=== PATIENT | female | born 1990 | race Caucasian/White ===

== ENCOUNTER → 2017-07-14 | Outpatient (CLI) | payer OTHER ==
--- NOTE | 2017-07-14 17:11 | Diagnostic Imaging Report ---
Transabdominal and transvaginal pelvic ultrasound. INDICATION: Pelvic pain. FINDINGS: The uterus is retroverted with measurements of 6 x 3.9 x 4 cm. The endometrial stripe is 0.7 cm in thickness. No myometrial mass is seen. The left ovary is 2.9 x 2.3 x 2.4 cm. Multiple follicles are seen. The right ovary is 2.8 x 3.2 x 1.7 cm. Multiple follicles are seen. Arterial and venous waveforms are demonstrated over both ovaries. No solid mass or significant fluid collection is seen. The urinary bladder appears unremarkable. IMPRESSION: Unremarkable exam. Dictated by: Dictated on workstation # [id number]
== END ==
LOC: RAD 14:04
PROVIDERS: ATTEND Obstetrics & Gynecology
DX: R10.2 Pelvic and perineal pain (principal); N94.0 Mittelschmerz
CPT/HCPCS: 76830; 76856

== ENCOUNTER 2017-10-16 08:10 | Emergency (ER) | payer BC, OTHER ==
[~2017-10-16] VITALS: Ht 160 cm; Wt 38.6 kg
[2017-10-16] MEDS ORDERED: NS IV 1000 ML 1,000 ML IV STA (08:19)
[2017-10-16 08:30] LABS: BILIRUBIN,URINE NEGATIVE (NEGATIVE); CLARITY,URINE CLEAR; COLOR,URINE YELLOW; GLUCOSE, URINE (UA) NEGATIVE (NEGATIVE); KETONES,URINE NEGATIVE (NEGATIVE); LEUKOCYTE ESTERASE ,URINE NEGATIVE (NEGATIVE); NITRITE,URINE NEGATIVE (NEGATIVE); PH,URINE 6 (5-9); PROTEIN,URINE NEGATIVE (NEGATIVE); UROBILINOGEN,URINE NORMAL (NORMAL)
[2017-10-16] MEDS ORDERED: ONDANSETRON 4 MG/2 ML (SDV) Z0FRAN IVP ONE (08:30)
[2017-10-16 08:51] LABS: BACTERIA,URINE NEGATIVE /HPF; WBC,URINE RARE /HPF
[2017-10-16 08:53] LABS: BASOPHILS % (AUTO) 1 % (0-10); EOSINOPHILS # (AUTO) 0.1 10^3/uL (0.0-0.3); EOSINOPHILS % (AUTO) 2 % (0-10); HEMATOCRIT 42 % (35-52); HEMOGLOBIN 14.5 G/DL (11.5-16.0); LYMPHOCYTES # (AUTO) 2.9 X 10^3 (1.0-4.0); LYMPHOCYTES % (AUTO) 34 % (12-44); MEAN CORPUSCULAR HEMOGLOBIN 30 PG (25-34); MEAN CORPUSCULAR HGB CONC 35 G/DL (32-36); MEAN CORPUSCULAR VOLUME 87 FL (80-99); MEAN PLATELET VOLUME 9.7 FL (7.4-10.4); MONOCYTES # (AUTO) 0.7 X 10^3 (0.0-1.0); MONOCYTES % (AUTO) 8 % (0-12); NEUTROPHILS # (AUTO) 4.8 X 10^3 (1.8-7.8); NEUTROPHILS % (AUTO) 56 % (42-75); PLATELET COUNT 291 10^3/uL (130-400); RED BLOOD COUNT 4.82 10^6/uL (4.35-5.85); RED CELL DISTRIBUTION WIDTH 12.2 % (10.0-14.5); WHITE BLOOD COUNT 8.6 10^3/uL (4.3-11.0)
--- NOTE | 2017-10-16 09:08 | ED Abdominal Pain ---
General Chief Complaint: Abdominal/GI Problems Stated Complaint: R SIDE PAIN Nursing Triage Note: C/O R LOWER ABD PAIN WITH N.V.D Sepsis Screen: No Definite Risk Source of Information: Patient Exam Limitations: No Limitations History of Present Illness Time Seen By Provider: 08:25 Initial Comments Here with report of right-sided abdominal pain associated with nausea, vomiting or diarrhea. Denies blood in her vomit or stool. Denies dysuria. Started with nausea and not feeling well yesterday and progressed to the vomiting and diarrhea this morning. Timing/Duration: 12 Hours Severity/Quality: Moderate Location: RLQ Radiation: No Radiation Modifying Factors: Worsens With Eating, Worsens With Resting Associated Symptoms: No Back Pain, No Chest Pain, No Fever/Chills, Nausea/ Vomiting, No Shortness of Air, No Weakness Allergies and Home Medications Allergies Coded Allergies: No Known Drug Allergies (Unverified , 12/21/10) Review of Systems Constitutional: see HPI, No chills, No fever EENTM: No Symptoms Reported Respiratory: No Symptoms Reported Cardiovascular: No Symptoms Reported Gastrointestinal: See HPI, Abdominal Pain, Diarrhea, Nausea, Vomiting Genitourinary: No Symptoms Reported Musculoskeletal: no symptoms reported Skin: no symptoms reported Psychiatric/Neurological: Denies Numbness, Denies Weakness Endocrine: No Symptoms Reported All Other Systems Reviewed Negative Unless Noted: Yes Past Njfrhaq-Zrhosf-Iydscl Hx Patient Social History Alcohol Use: Denies Use Recreational Drug Use: No Smoking Status: Never a Smoker Recent Foreign Travel: No Contact w/Someone Who Travel: No Recent Infectious Disease Expo: No Surgeries History of Surgeries: Yes Surgeries: Tonsillectomy Respiratory History of Respiratory Disorde: No Cardiovascular History of Cardiac Disorders: No Neurological History of Neurological Disord: No Reproductive System Last Menstrual Period: Sep 29, 2017 Genitourinary History of Genitourinary Disor: No Gastrointestinal History of Gastrointestinal Di: No Musculoskeletal History of Musculoskeletal Dis: No Endocrine History of Endocrine Disorders: No HEENT History of HEENT Disorders: No Cancer History of Cancer: No Psychosocial History of Psychiatric Problem: No Integumentary History of Skin or Integumenta: No Reviewed Nursing Assessment Reviewed/Agree w Nursing PMH: Yes Family Medical History Significant Family History: No Pertinent Family Hx Physical Exam Vital Signs VS - Last 72 Hours, by Label 10/16/17 08:14 Temp 98.5 Pulse 85 Resp 18 B/P (MAP) 144/84 (104) Pulse Ox 96 O2 Delivery Room Air Capillary Refill : Less Than 3 Seconds General Appearance: WD/WN, no apparent distress HEENT: PERRL/EOMI, pharynx normal Neck: full range of motion, supple Respiratory: lungs clear, normal breath sounds Cardiovascular: regular rate, rhythm, no murmur Peripheral Pulses: 2+ Dorsalis Pedis (R), 2+ Left Dors-Pedis (L), 2+ Radial Pulses (R), 2+ Radial Pulses (L) Gastrointestinal: soft, tenderness (right-sided abdominal pain at the upper/ lower junction) Extremities: non-tender, normal inspection Back: normal inspection, no CVA tenderness, no vertebral tenderness Neurologic/Psychiatric: alert, oriented x 3 Skin: normal color, warm/dry Progress/Results/Core Measures Results/Orders Lab Results Laboratory Tests Test 10/16/17 08:25 10/16/17 08:42 Range/Units Urine Color YELLOW Urine Clarity CLEAR Urine pH 6 5-9 Urine Specific Howe 1.020 1.016-1.022 Urine Protein NEGATIVE NEGATIVE Urine Glucose (UA) NEGATIVE NEGATIVE Urine Ketones NEGATIVE NEGATIVE Urine Nitrite NEGATIVE NEGATIVE Urine Bilirubin NEGATIVE NEGATIVE Urine Urobilinogen NORMAL NORMAL MG/DL Urine Leukocyte Esterase NEGATIVE NEGATIVE Urine RBC (Auto) NEGATIVE NEGATIVE Urine RBC NONE /HPF Urine WBC RARE /HPF Urine Squamous Epithelial Cells 2-5 /HPF Urine Crystals NONE /LPF Urine Bacteria NEGATIVE /HPF Urine Casts NONE /LPF Urine Mucus NEGATIVE /LPF Urine Culture Indicated NO White Blood Count 8.6 4.3-11.0 10^3/uL Red Blood Count 4.82 4.35-5.85 10^6/uL Hemoglobin 14.5 11.5-16.0 G/DL Hematocrit 42 35-52 % Mean Corpuscular Volume 87 80-99 FL Mean Corpuscular Hemoglobin 30 25-34 PG Mean Corpuscular Hemoglobin Concent 35 32-36 G/DL Red Cell Distribution Width 12.2 10.0-14.5 % Platelet Count 291 130-400 10^3/uL Mean Platelet Volume 9.7 7.4-10.4 FL Neutrophils (%) (Auto) 56 42-75 % Lymphocytes (%) (Auto) 34 12-44 % Monocytes (%) (Auto) 8 0-12 % Eosinophils (%) (Auto) 2 0-10 % Basophils (%) (Auto) 1 0-10 % Neutrophils # (Auto) 4.8 1.8-7.8 X 10^3 Lymphocytes # (Auto) 2.9 1.0-4.0 X 10^3 Monocytes # (Auto) 0.7 0.0-1.0 X 10^3 Eosinophils # (Auto) 0.1 0.0-0.3 10^3/uL Basophils # (Auto) 0.0 0.0-0.1 10^3/uL Sodium Level 139 135-145 MMOL/L Potassium Level 4.2 3.6-5.0 MMOL/L Chloride Level 105 98-107 MMOL/L Carbon Dioxide Level 23 21-32 MMOL/L Anion Gap 11 5-14 MMOL/L Blood Urea Nitrogen 12 7-18 MG/DL Creatinine 0.86 0.60-1.30 MG/DL Estimat Glomerular Filtration Rate > 60 BUN/Creatinine Ratio 14 Glucose Level 104 70-105 MG/DL Calcium Level 9.5 8.5-10.1 MG/DL Total Bilirubin 0.3 0.1-1.0 MG/DL Aspartate Amino Transf (AST/SGOT) 18 5-34 U/L Alanine Aminotransferase (ALT/SGPT) 21 0-55 U/L Alkaline Phosphatase 56 40-136 U/L C-Reactive Protein High Sensitivity 0.27 0.00-0.50 MG/DL Total Protein 7.4 6.4-8.2 GM/DL Albumin 4.2 3.2-4.5 GM/DL My Orders Orders - VIET DAVIS MD Urine Bedside (10/16/17 08:19) Cbc With Automated Diff (10/16/17 08:19) Comprehensive Metabolic Panel (10/16/17 08:19) Hs C Reactive Protein (10/16/17 08:19) Ua Culture If Indicated (10/16/17 08:19) Ondansetron Injection (Zofran Injectio (10/16/17 08:30) Ns Iv 1000 Ml (Sodium Chloride 0.9%) (10/16/17 08:19) Saline Lock/Iv-Start (10/16/17 08:19) Ct Abd/Pelv W (Appendicitis) (10/16/17 08:57) Iohexol Injection (Omnipaque 350 Mg/Ml 1 (10/16/17 09:45) Medications Given in ED Current Medications Medications Dose Ordered Sig/Ada Route Start Time Stop Time Status Last Admin Dose Admin Iohexol 100 ml ONCE ONCE IV 10/16/17 09:45 10/16/17 09:46 DC 10/16/17 09:43 100 ML Ondansetron HCl 4 mg ONCE ONCE IVP 10/16/17 08:30 10/16/17 08:31 DC 10/16/17 08:40 4 MG Vital Signs/I&O Vital Sign - Last 12Hours 10/16/17 08:14 Temp 98.5 Pulse 85 Resp 18 B/P (MAP) 144/84 (104) Pulse Ox 96 O2 Delivery Room Air Blood Pressure Mean: 104 Point of Care Testing Urine -Bedside: Negative Progress Note : Progress Note Seen and evaluated. IV, labs, normal saline 1 L bolus, UA and UCG ordered. Zofran 4 mg IV ordered. Patient declined pain medicine. 0905: CT abdomen pelvis appendicitis protocol ordered. Monitor patient. 1020: CT negative. No acute findings. Discharged home with return precautions. Patient verbalize understanding instructions and agreement with plan. Diagnostic Imaging Diagonstic Imaging: CT Plain Films/CT/US/NM/MRI: abdomen, pelvis Comments [facility]IA [facility]. [place], [place] NAME: LAUREN [facility]DO [facility] REC#: [id number] PT STATUS: REG ER : 1990 PHYSICIAN: VIET DAVIS MD ADMIT DATE: 10/16/17/ER Draft Date of Exam:10/16/17 CT ABD/PELV W (APPENDICITIS) PROCEDURE: CT abdomen and pelvis with contrast, rule out appendicitis. TECHNIQUE: Multiple contiguous axial images were obtained through the abdomen and pelvis after the administration of intravenous contrast. INDICATION: Right lower quadrant pain. FINDINGS: The air-containing appendix is well-visualized, non-thickened, nondilated and normal. The unobstructed kidneys appeared normal. The liver, gallbladder, bile ducts, spleen, adrenals and pancreas are normal. There is no bowel obstruction. There is no diverticulitis. The uterus, adnexa and urinary bladder had an unremarkable appearance. No focal inflammatory process. No ascites, abscess, hematoma or other fluid collection. IMPRESSION: Normal appendix, unobstructed and nonacute urinary tracts. No inflammatory process or acute findings. No adnexal abnormality. Dictated on workstation # [id number] Dict: 10/16/17 0945 Trans: 10/16/17 1012 [facility] [id number] Interpreted by: ELIANE JOE Electronically signed by: Departure Impression Impression: Primary Impression: Right sided abdominal pain Disposition: HOME, SELF-CARE Condition: Stable Departure-Patient Inst. Decision time for Depature: 10:27 Referrals: NO,LOCAL PHYSICIAN (PCP) Primary Care Physician Patient Instructions: Acute Abdomen (Belly Pain), Adult (DC), Diarrhea in Adolescents and Adults, Nausea and Vomiting, Adult (DC) Add. Discharge Instructions: All discharge instructions reviewed with patient and/or family. Voiced understanding. Clear liquid diet for 24 hours and then advance as tolerated. Follow-up with your Dr. in 2-3 days for recheck. Return for worsening, fever, vomiting, weakness, breathing problems or other concerns as needed. You may take Tylenol or ibuprofen per package directions for fever or pain. Take other medications as directed. Scripts Promethazine HCl (Promethazine Tablet) 25 Mg Tablet 25 MG PO Q8H Y for NAUSEA/VOMITING, #10 TAB 0 Refills Prov: VIET DAVIS MD 10/16/17 VIET DAVIS MD Oct 16, 2017 09:08
[2017-10-16 09:09] LABS: ALANINE AMINOTRANSFERASE 21 U/L (0-55); ALBUMIN 4.2 GM/DL (3.2-4.5); ALKALINE PHOSPHATASE 56 U/L (40-136); BILIRUBIN,TOTAL 0.3 MG/DL (0.1-1.0); BUN/CREATININE RATIO 14; CALCIUM 9.5 MG/DL (8.5-10.1); CARBON DIOXIDE 23 MMOL/L (21-32); CHLORIDE 105 MMOL/L (98-107); CREATININE SERUM 0.86 MG/DL (0.60-1.30); GFR ESTIMATED > 60; GLUCOSE 104 MG/DL (70-105); POTASSIUM 4.2 MMOL/L (3.6-5.0); SODIUM 139 MMOL/L (135-145); TOTAL PROTEIN 7.4 GM/DL (6.4-8.2)
[2017-10-16] MEDS ORDERED: IOHEXOL 350 MG/ML 100 ML (OMNIPAQUE 350) VIAL IV ONE (09:45)
--- NOTE | 2017-10-16 10:13 | Diagnostic Imaging Report ---
PROCEDURE: CT abdomen and pelvis with contrast, rule out appendicitis. TECHNIQUE: Multiple contiguous axial images were obtained through the abdomen and pelvis after the administration of intravenous contrast. INDICATION: Right lower quadrant pain. FINDINGS: The air-containing appendix is well-visualized, non-thickened, nondilated and normal. The unobstructed kidneys appeared normal. The liver, gallbladder, bile ducts, spleen, adrenals and pancreas are normal. There is no bowel obstruction. There is no diverticulitis. The uterus, adnexa and urinary bladder had an unremarkable appearance. No focal inflammatory process. No ascites, abscess, hematoma or other fluid collection. IMPRESSION: Normal appendix, unobstructed and nonacute urinary tracts. No inflammatory process or acute findings. No adnexal abnormality. Dictated by: Dictated on workstation # [id number]
[2017-10-16] MEDS ORDERED: PROM25TA14 PO (10:28)
[2017-10-16 10:43] VITALS: BP 130/87
--- OUTSIDE RECORDS SUMMARY | 2017-10-16 20:10 | XMS REPORT ---
Author RONAL King [facility] eClinicalWorks Address Unknown Phone Unavailable Care Team Providers Care Hr Intern Name Role Phone RONAL STEPHENSON CP Unavailable Allergies, Adverse Reactions, Alerts Substance Reaction Event Type N.K.D.A. Info Not Available Non Drug Allergy Problems Problem Type Condition Code Onset Dates Condition Status Problem Irregular menstrual cycle 626.4 Active Problem Cough 786.2 Active Problem Dietary surveillance and counseling V65.3 Active Problem Diabetes E11.9 Active Problem Obesity (BMI 35.0-39.9 without comorbidity) E66.01 Active Problem Metabolic syndrome E88.81 Active Problem Obesity (BMI 30.0-34.9) 278.00 Active Problem Acute sinusitis, unspecified 461.9 Active Problem Hypercholesterolemia E78.0 Active Problem Prediabetes 790.29 Active Assessment Metabolic syndrome E88.81 Active Problem 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 [address]-20 20 MG Orally Once a day April 27, 2015 1 tablet in the evening MetFORMIN HCl ER [facility] [address]-35 500 MG Orally 2 times a day Aug 30, 2015 1 tablet with evening meal Procedures Procedure Coding System Code Date Office Visit, Est Pt., Level 4 CPT-4 65567 Sep 27, 2015 Vital Signs Date/Time: Sep 27, 2015 Temperature 97.8 F Weight 235.9 lbs Height 64 in BMI 40.49 Index Blood Pressure Diastolic 80 mmHg Blood Pressure Systolic 122 mmHg Cardiac Monitoring Heart Rate 84 bpm Results No Known Results Summary Purpose eClinicalWorks Submission
--- OUTSIDE RECORDS SUMMARY | 2017-10-16 20:10 | XMS REPORT ---
Author Author MAYKEL LOVELACE Organization eClinicalWorks Address Unknown Phone Unavailable Care Team Providers Care Manager Of Information Name Role Phone MAYKEL LOVELACE CP Unavailable Allergies, Adverse Reactions, Alerts Substance Reaction Event Type N.K.D.A. 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 Active Assessment Allergic rhinitis 477.9 Active Problem Obesity (BMI 30.0-34.9) 278.00 Active Problem Acute sinusitis, unspecified 461.9 Active Problem Prediabetes 790.29 Active Problem Irregular menstrual cycle 626.4 Active Problem Other and unspecified hyperlipidemia 272.4 Active Problem Cough 786.2 Active Problem Dietary surveillance and counseling V65.3 Active Medications Medication Code System Code Instructions Start Date End Date [place] D[place] [address]-87 10 MG Orally Once a day Jun 27, 2015 Oct 25, 2015 1 tablet as needed Zocor NDC [address]-37 20 MG Orally Once a day April 27, 2015 1 tablet in the evening metformin NDC 0 500 mg orally Once a day February 17, 2014 Jul 25, 2015 1 tablet by Oral route 1 time per day Procedures Procedure Coding System Code Date Office Visit, Est Pt., Level 3 CPT-4 55209 Jun 27, 2015 Vital Signs Date/Time: Jun 27, 2015 Temperature 98.4 F Weight 229 lbs Height 64 in BMI 39.30 Index Blood Pressure Diastolic 64 mmHg Blood Pressure Systolic 118 mmHg Cardiac Monitoring Heart Rate 100 bpm Results No Known Results Summary Purpose eClinicalWorks Submission
--- OUTSIDE RECORDS SUMMARY | 2017-10-16 20:10 | XMS REPORT ---
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
--- OUTSIDE RECORDS SUMMARY | 2017-10-16 20:11 | XMS REPORT ---
Author RONAL King [facility] eClinicalWorks Address Unknown Phone Unavailable Care Team Providers Care Marketing Production Specialist Name Role Phone RONAL STEPHENSON CP Unavailable Allergies, Adverse Reactions, Alerts Substance Reaction Event Type N.K.D.A. Info Not Available Non Drug Allergy Problems Problem Type Condition Code Onset Dates Condition Status Problem Other and unspecified hyperlipidemia 272.4 Active Problem Dietary surveillance and counseling V65.3 Active Problem Irregular menstrual cycle 626.4 Active Problem Obesity (BMI 35.0-39.9 without comorbidity) E66.01 Active Problem Hypercholesterolemia E78.0 Active Problem Diabetes E11.9 Active Problem Acute sinusitis, unspecified 461.9 Active Problem Cough 786.2 Active Problem Prediabetes 790.29 Active Problem Obesity (BMI 30.0-34.9) 278.00 Active Assessment Hypercholesterolemia E78.0 Active Assessment Obesity (BMI 35.0-39.9 without comorbidity) E66.01 Active Assessment Diabetes E11.9 Active Problem 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 Active Medications Medication Code System Code Instructions Start Date End Date Status Dosage MetFORMIN HCl ER [facility] [address]-37 500 MG Orally 2 times a day Aug 30, 2015 1 tablet with evening meal Zocor [facility] [address]-59 20 MG Orally Once a day April 27, 2015 1 tablet in the evening Procedures Procedure Coding System Code Date Office Visit, Est Pt., Level 3 CPT-4 10938 Aug 30, 2015 GLYCATED HEMOGLOBIN TEST CPT-4 86653 Aug 30, 2015 Vital Signs Date/Time: Aug 30, 2015 Temperature 97.1 F Weight 236.8 lbs Height 64 in BMI 40.64 Index Blood Pressure Diastolic 82 mmHg Blood Pressure Systolic 118 mmHg Cardiac Monitoring Heart Rate 80 bpm Results Name Result Date Reference Range Unit Abnormality Flag A1C (IN HOUSE) ----A1C IN HOUSE 5.0 20150830 4.30 - 5.6 % ----Previous A1c 5.1 20150830 ----Lot # [id number] ----Exp date 20150830 Summary Purpose eClinicalWorks Submission
--- OUTSIDE RECORDS SUMMARY | 2017-10-16 20:11 | XMS REPORT ---
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
--- OUTSIDE RECORDS SUMMARY | 2017-10-16 20:11 | XMS REPORT ---
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 Active 74357192 Problem Other and unspecified hyperlipidemia 272.4 Active 30092735 Problem Dietary surveillance and counseling V65.3 Active 283420858 Problem Cough 786.2 Active 88562124 Problem Irregular menstrual cycle 626.4 Active 25459664 Problem Metabolic syndrome E88.81 Active 553516128 Problem Diabetes E11.9 Active 486439161 Problem Obesity (BMI 30.0-34.9) 278.00 Active 355815635 Problem Prediabetes 790.29 Active 3121312 Problem Hypercholesterolemia E78.0 Active 25070290 Problem Obesity (BMI 35.0-39.9 without comorbidity) E66.01 Active 093494269 ALLERGIES Substance Reaction Event Type Date Status N.K.D.A. Unknown Non Drug Allergy Oct, Unknown SOCIAL HISTORY No smoking Hx information available PLAN OF CARE Activity Details Follow Up prn Reason: VITAL SIGNS Height 64 in 2016-10-14 Weight 241 lbs 2016-10-14 Temperature 98.2 degrees Fahrenheit 2016-10-14 Heart Rate 78 bpm 2016-10-14 Respiratory Rate 20 2016-10-14 BMI 41.36 kg/m2 2016-10-14 Blood pressure systolic 135 mmHg 2016-10-14 Blood pressure diastolic 70 mmHg 2016-10-14 MEDICATIONS Medication Instructions Dosage Frequency Start Date End Date Duration Status Pseudoephedrine HCl 60 mg Orally every 6 hrs 1 tablet as needed 6h Oct, Active Promethazine-Codeine 6.25-10 MG/5ML Orally every 4 hrs, prn cough 1-2 tsp Oct, Active RESULTS Name Result Date Reference Range INFLUENZA A & B (IN HOUSE) 2016-10-14 INFLUENZA A Negative INFLUENZA B Negative Control + Lot # [id number] Exp date 04/03/2018 PROCEDURES Procedure Date Ordered Related Diagnosis Body Site INFLUENZA ASSAY W/OPTIC Oct 14, 2016 Office Visit, Est Pt., Level 2 Oct 14, 2016 IMMUNIZATIONS No Known Immunizations
--- OUTSIDE RECORDS SUMMARY | 2017-10-16 20:11 | XMS REPORT | Continuity of Care Document ---
Author Author [facility] C[facility] of [facility] Address Unknown Phone Unavailable Allergies Active Description Code Type Severity Reaction Onset Reported/Identified Relationship to Patient Clinical Status Yes No Known Drug Allergies [id number] Drug Allergy Unknown N/A 12/21/2010 Medications There is no data. Problems Date Dx Coded Attending Type Code Diagnosis Diagnosed By 12/21/2010 Ot 780.2 SYNCOPE AND COLLAPSE 08/06/2013 BIBIANA DE LA GARZA APRN A 461.9 SINUSITIS ACUTE 08/06/2013 BIBIANA DE LA GARZA APRN A 786.2 COUGH 08/06/2013 PEGGY OSBORN APRNINA R 461.9 SINUSITIS ACUTE 08/06/2013 PEGGY OSBORN APRNINA R 786.2 COUGH 08/06/2013 ASUNCION DE LA GARZA APRNIDI A 461.9 SINUSITIS ACUTE 08/06/2013 ASUNCION DE LA GARZA APRNIDI A 786.2 COUGH 01/17/2014 ASUNCION DE LA GARZA APRNIDI A 278.00 OBESITY 01/17/2014 ASUNCION DE LA GARZA APRNIDI A 626.4 IRREGULAR MENSTRUAL CYCLE 01/17/2014 BIBIANA DE LA GARZA APRN A V72.62 LAB SCREENING- GENERAL PHYSICAL 01/17/2014 PEGGY OSBORN APRNINA R 278.00 OBESITY 01/17/2014 PEGGY OSBORN APRNINA R 626.4 IRREGULAR MENSTRUAL CYCLE 01/17/2014 IRENA CHACON LIYA R V72.62 LAB SCREENING- GENERAL PHYSICAL 01/17/2014 ASUNCION DE LA GARZA APRNIDI A 278.00 OBESITY 01/17/2014 ASUNCION DE LA GARZA APRNIDI A 626.4 IRREGULAR MENSTRUAL CYCLE 01/17/2014 ASUNCION DE LA GARZA APRNIDI A V72.62 LAB SCREENING- GENERAL PHYSICAL 02/17/2014 PEGGY OSBORN APRNINA R 253.1 OTHER AND UNSPECIFIED ANTERIOR PITUITARY HYPERFUNCTION 02/17/2014 LIYA OSBORN APRN R 272.4 OTHER AND UNSPECIFIED HYPERLIPIDEMIA 02/17/2014 BIBIANA DE LA GARZA APRN 253.1 OTHER AND UNSPECIFIED ANTERIOR PITUITARY HYPERFUNCTION 02/17/2014 BIBIANA DE LA GARZA APRN 272.4 OTHER AND UNSPECIFIED HYPERLIPIDEMIA 04/06/2014 BIBIANA DE LA GARZA APRN V65.3 COUNSELING- OBESITY (DIET) 03/21/2016 Ot R19.03 RIGHT LOWER QUADRANT ABDOMINAL SWELLING, 03/21/2016 Ot R19.03 RIGHT LOWER QUADRANT ABDOMINAL SWELLING, 07/05/2016 Ot R19.03 RIGHT LOWER QUADRANT ABDOMINAL SWELLING, 07/31/2016 Ot R19.03 RIGHT LOWER QUADRANT ABDOMINAL SWELLING, 07/31/2016 Ot R19.03 RIGHT LOWER QUADRANT ABDOMINAL SWELLING, 07/01/2017 Ot R19.03 RIGHT LOWER QUADRANT ABDOMINAL SWELLING, 07/15/2017 FENECH DO, LESLIE S Ot N94.0 MITTELSCHMERZ 07/15/2017 FENECH DO, LESLIE S Ot R10.2 PELVIC AND PERINEAL PAIN 07/29/2017 FENECH DO, LESLIE S Ot N94.0 MITTELSCHMERZ 07/29/2017 FENECH DO, LESLIE S Ot R10.2 PELVIC AND PERINEAL PAIN 07/31/2017 FENECH DO, LESLIE S Ot N94.0 MITTELSCHMERZ 07/31/2017 FENECH DO, LESLIE S Ot R10.2 PELVIC AND PERINEAL PAIN 08/14/2017 FENECH DO, LESLIE S Ot N94.0 MITTELSCHMERZ 08/14/2017 FENECH DO, LESLIE S Ot R10.2 PELVIC AND PERINEAL PAIN 09/01/2017 FENECH DO, LESLIE S Ot N94.0 MITTELSCHMERZ 09/01/2017 FENECH DO, LESLIE S Ot R10.2 PELVIC AND PERINEAL PAIN Procedures Code Description [place] [address] ROUTINE VENIPUNCTURE 01/17/2014 11971 TEST, URINE (IN- HOUSE) 01/17/2014 20225 TESTOSTERONE TOTAL-WOMEN & CHILDREN 01/17/2014 80585 CBC 01/17/2014 [id number] GFR CALC (RESULT ONLY) 01/17/2014 68041 CMP 01/17/2014 95470 LIPID PANEL 01/17/2014 68773 TSH 01/17/2014 53852 INSULIN LEVEL 01/18/2014 Results Test Result Range Complete urinalysis with reflex to culture - 10/16/17 08:25 Urine color determination YELLOW NRG Urine clarity determination CLEAR NRG Urine pH measurement by test strip 6 5-9 Specific gravity of urine by test strip 1.020 1.016- 1.022 Urine protein assay by test strip, semi-quantitative NEGATIVE NEGATIVE Urine glucose detection by automated test strip NEGATIVE NEGATIVE Erythrocytes detection in urine sediment by light microscopy NEGATIVE NEGATIVE Urine ketones detection by automated test strip NEGATIVE NEGATIVE Urine nitrite detection by test strip NEGATIVE NEGATIVE Urine total bilirubin detection by test strip NEGATIVE NEGATIVE Urine urobilinogen measurement by automated test strip (mass/volume) NORMAL NORMAL Urine leukocyte esterase detection by dipstick NEGATIVE NEGATIVE Automated urine sediment erythrocyte count by microscopy (number/high power field) NONE NRG Automated urine sediment leukocyte count by microscopy (number/high power field ) RARE NRG Bacteria detection in urine sediment by light microscopy NEGATIVE NRG Squamous epithelial cells detection in urine sediment by light microscopy 2-5 NRG Crystals detection in urine sediment by light microscopy NONE NRG Casts detection in urine sediment by light microscopy NONE NRG Mucus detection in urine sediment by light microscopy NEGATIVE NRG Complete urinalysis with reflex to culture NO NRG Complete blood count (CBC) with automated white blood cell (WBC) differential - 10/16/17 08:42 Blood leukocytes automated count (number/volume) 8.6 10*3/uL 4.3-11.0 Blood erythrocytes automated count (number/volume) 4.82 10*6/uL 4.35-5.85 Venous blood hemoglobin measurement (mass/volume) 14.5 g/dL 11.5-16.0 Blood hematocrit (volume fraction) 42 % 35-52 Automated erythrocyte mean corpuscular volume 87 [foz_us] 80-99 Automated erythrocyte mean corpuscular hemoglobin (mass per erythrocyte) 30 pg 25-34 Automated erythrocyte mean corpuscular hemoglobin concentration measurement ( mass/volume) 35 g/dL 32-36 Automated erythrocyte distribution width ratio 12.2 % 10.0-14.5 Automated blood platelet count (count/volume) 291 10*3/uL 130-400 Automated blood platelet mean volume measurement 9.7 [foz_us] 7.4-10.4 Automated blood neutrophils/100 leukocytes 56 % 42-75 Automated blood lymphocytes/100 leukocytes 34 % 12-44 Blood monocytes/100 leukocytes 8 % 0-12 Automated blood eosinophils/100 leukocytes 2 % 0-10 Automated blood basophils/100 leukocytes 1 % 0-10 Blood neutrophils automated count (number/volume) 4.8 10*3 1.8-7.8 Blood lymphocytes automated count (number/volume) 2.9 10*3 1.0-4.0 Blood monocytes automated count (number/volume) 0.7 10*3 0.0-1.0 Automated eosinophil count 0.1 10*3/uL 0.0-0.3 Automated blood basophil count (count/volume) 0.0 10*3/uL 0.0-0.1 Comprehensive metabolic panel - 10/16/17 08:42 Serum or plasma sodium measurement (moles/volume) 139 mmol/L 135-145 Serum or plasma potassium measurement (moles/volume) 4.2 mmol/L 3.6-5.0 Serum or plasma chloride measurement (moles/volume) 105 mmol/L 98-107 Carbon dioxide 23 mmol/L 21-32 Serum or plasma anion gap determination (moles/volume) 11 mmol/L 5-14 Serum or plasma urea nitrogen measurement (mass/volume) 12 mg/dL 7-18 Serum or plasma creatinine measurement (mass/volume) 0.86 mg/dL 0.60-1.30 Serum or plasma urea nitrogen/creatinine mass ratio 14 NRG Serum or plasma creatinine measurement with calculation of estimated glomerular filtration rate > NRG Serum or plasma glucose measurement (mass/volume) 104 mg/dL 70-105 Serum or plasma calcium measurement (mass/volume) 9.5 mg/dL 8.5-10.1 Serum or plasma total bilirubin measurement (mass/volume) 0.3 mg/dL 0.1-1.0 Serum or plasma alkaline phosphatase measurement (enzymatic activity/volume) 56 U/L 40-136 Serum or plasma aspartate aminotransferase measurement (enzymatic activity/ volume) 18 U/L 5-34 Serum or plasma alanine aminotransferase measurement (enzymatic activity/volume ) 21 U/L 0-55 Serum or plasma protein measurement (mass/volume) 7.4 g/dL 6.4-8.2 Serum or plasma albumin measurement (mass/volume) 4.2 g/dL 3.2-4.5 Serum or plasma C reactive protein measurement (mass/volume) - 10/16/17 08:42 Serum or plasma C reactive protein measurement (mass/volume) 0.27 mg /dL 0.00-0.50 Encounters ACCT No. Visit Date/Time Discharge Status Pt. Type Provider Facility Loc./Unit Complaint [id number] 04/06/2014 15:52:00 04/06/2014 23:59:59 [facility] Outpatient BIBIANA DE LA GARZA APRN [id number] 02/17/2014 13:53:00 02/17/2014 23:59:59 [facility] Outpatient LIYA OSBORN APRN [id number] 01/17/2014 08:43:00 01/17/2014 23:59:59 [facility] Outpatient BIBIANA DE LA AGRZA APRN [id number] 07/14/2017 14:04:00 07/14/2017 23:59:59 [facility] Outpatient LESLIE SAWYER DO Via [facility] RAD CHRONIC PELVIC PAIN IN FEMALE,OVULATION PAIN [id number] 10/16/2017 08:52:00 Document Registration [id number] 01/04/2016 09:47:00 Document Registration [id number] 12/21/2010 12:20:00 Document Registration
--- OUTSIDE RECORDS SUMMARY | 2017-10-16 20:11 | XMS REPORT ---
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
== END 2017-10-16 10:48 | disposition home or self-care (01) ==
LOC: EDUNIT# 08:10 → ER 08:12
DX: R10.31 Right lower quadrant pain (principal); Z90.89 Acquired absence of other organs
CPT/HCPCS: 36415; 74177; 80053; 81000; 84703; 85025; 86141; 96361; 96374

== ENCOUNTER → 2017-12-19 | Outpatient (CLI) | payer BC ==
[~2017-12-19] MED LIST: PROM25TA14 PO
== END ==
LOC: LAB 07:43
PROVIDERS: ATTEND Obstetrics & Gynecology
DX: N91.2 Amenorrhea, unspecified (principal)
CPT/HCPCS: 36415; 84702

== ENCOUNTER 2018-04-19 10:27 | Emergency (ER) | payer BC ==
[~2018-04-19] VITALS: Ht 162.6 cm; Wt 90.7 kg
--- NOTE | 2018-04-19 11:06 | ED Lower Extremity ---
General Stated Complaint: LEG SWELLING Source: patient Exam Limitations: no limitations History of Present Illness Date Seen by Provider: Apr 19, 2018 Time Seen by Provider: 11:01 Initial Comments Patient is a 28-year-old female who presents to the emergency room accompanied by her fianc with a left ankle pain. She reports that they are currently remodeling their kitchen and they have the floor torn up and she stepped wrong and her foot went through the floor and a floor joist. She complains of left ankle swelling and an abrasion to her left howard. She reports that she is up-to- date on her tetanus and states that this happened just prior to arrival. She did ambulate to ER room 10. Onset: just prior to arrival Pain/Injury Location: left ankle Method of Injury: fell Modifying Factors: Improves With Movement Allergies and Home Medications Allergies Coded Allergies: No Known Drug Allergies (Unverified , 12/21/10) Home Medications Promethazine HCl 25 Mg Tablet, 25 MG PO Q8H PRN for NAUSEA/VOMITING Prescribed by: VIET DAVIS on 10/16/17 1028 Patient Home Medication List Home Medication List Reviewed: Yes Constitutional: see HPI; No chills, No diaphoresis EENTM: see HPI; No no symptoms reported, No ear discharge, No hearing loss, No ear pain Respiratory: see HPI; No cough, No dyspnea on exertion Cardiovascular: see HPI; No chest pain, No edema Gastrointestinal: see HPI; No abdominal pain, No constipation Musculoskeletal: see HPI, joint pain (left ankle) Skin: see HPI, other (abrasion to the left howard. ) Psychiatric/Neurological: See HPI; Denies Anxiety, Denies Depressed All Other Systems Reviewed Negative Unless Noted: Yes Past Zrjktiq-Zhnstf-Gblchy Hx Past Med/Social Hx: Reviewed Nursing Past Med/Soc Hx Patient Social History Recent Foreign Travel: No Contact w/Someone Who Travel: No Past Medical History Surgeries: Yes Tonsillectomy Respiratory: No Cardiac: No Neurological: No Genitourinary: No Gastrointestinal: No Musculoskeletal: No Endocrine: No HEENT: No Cancer: No Psychosocial: No Integumentary: No Family Medical History Reviewed Nursing Family Hx No Pertinent Family Hx Physical Exam Vital Signs Vital Signs - First Documented 04/19/18 10:57 Temp 97.0 Pulse 76 Resp 17 B/P (MAP) 128/98 (108) Pulse Ox 98 O2 Delivery Room Air Capillary Refill : Height, Weight, BMI Height: 5'3.00" Weight: 85lbs. oz. 38.075273xr; BMI Method:Stated General Appearance: WD/WN, no apparent distress HEENT: PERRL/EOMI, normal ENT inspection, TMs normal, pharynx normal Neck: non-tender, full range of motion, supple, normal inspection Cardiovascular: regular rate, rhythm, no edema, no gallop, no JVD, no murmur Respiratory: chest non-tender, lungs clear, normal breath sounds, no respiratory distress, no accessory muscle use Gastrointestinal: normal bowel sounds, non tender, soft, no organomegaly, no pulsatile mass Back: normal inspection, no CVA tenderness, no vertebral tenderness Hips: bilateral hip non-tender, bilateral hip normal inspection, bilateral hip normal range of motion, bilateral hip no evidence of injury Legs: bilateral leg non-tender, bilateral leg normal inspection, bilateral leg normal range of motion, bilateral leg no evidence of injury Knees: bilateral knee non-tender, bilateral knee normal inspection, bilateral knee normal range of motion, bilateral knee no evidence of injury Ankles: right ankle non-tender, right ankle normal inspection; bilateral ankle normal range of motion; right ankle no evidence of injury; left ankle abrasions/ lacerations (there is a small 1 72 x 1 cm abrasion to the left howard.), left ankle soft tissue tenderness, left ankle swelling Feet: bilateral foot non-tender, bilateral foot normal inspection, bilateral foot normal range of motion, bilateral foot no evidence of injury Neurologic/Tendon: normal sensation, normal motor functions, normal tendon functions, responds to pain Neurologic/Psychiatric: alert, normal mood/affect, oriented x 3 Skin: normal color, warm/dry Lymphatic: no adenopathy Progress/Results/Core Measures Results/Orders My Orders Orders - MARIYA GERMAN Ankle, Left, 3 Views (04/19/18 11:00) Vital Signs/I&O 04/19/18 10:57 Temp 97.0 Pulse 76 Resp 17 B/P (MAP) 128/98 (108) Pulse Ox 98 O2 Delivery Room Air Progress Progress Note : Progress Note The patient was placed in a ankle stirrup for comfort. She is advised to use ibuprofen and Tylenol as directed. She does have a job requires her to be on her feet a lot requested for a work note for tomorrow. Diagnostic Imaging Diagonstic Imaging: Xray Plain Films/CT/US/NM/MRI: ankle Comments NAME: LAUREN ELIZONDO [facility] REC#: [id number] PT STATUS: REG ER : 1990 PHYSICIAN: MARIYA GERMAN ADMIT DATE: 04/19/18/ER Signed Date of Exam: 04/19/18 ANKLE, LEFT, 3 VIEWS INDICATION: Puncture wound TECHNIQUE: Three views of the left ankle CORRELATION STUDY: None FINDINGS: The bony alignment is anatomic. The talar dome is intact. The ankle mortise is maintained. There is no acute fracture or dislocation. Suggestion slight soft tissue swelling at the distal leg. No radiographic evidence for soft tissue foreign body. IMPRESSION: Negative for acute bony abnormality of the ankle. Dictated by: Dictated on workstation # [id number] Dict: 04/19/181116 Trans: 04/19/181117 Interpreted by: KATEY NOEL DO Electronically signed by: KATEY NOEL DO 04/19/181117 Reviewed: Reviewed by Mi Consults : Consults Notes NAME: CAROLAUREN Radames [facility] REC#: [id number] PT STATUS: REG ER : 1990 PHYSICIAN: MARIYA GERMAN ADMIT DATE: 04/19/18/ER Signed Date of Exam: 04/19/18 ANKLE, LEFT, 3 VIEWS INDICATION: Puncture wound TECHNIQUE: Three views of the left ankle CORRELATION STUDY: None FINDINGS: The bony alignment is anatomic. The talar dome is intact. The ankle mortise is maintained. There is no acute fracture or dislocation. Suggestion slight soft tissue swelling at the distal leg. No radiographic evidence for soft tissue foreign body. IMPRESSION: Negative for acute bony abnormality of the ankle. Dictated by: Dictated on workstation # [id number] Dict: 04/19/181116 Trans: 04/19/181117 Interpreted by: KATEY NOEL DO Electronically signed by: KATEY NOEL DO 04/19/18 111 Departure Impression Primary Impression: Contusion of ankle Qualified Codes: S90.02XA - Contusion of left ankle, initial encounter Disposition: HOME, SELF-CARE Condition: Stable/Unchanged Departure-Patient Inst. Decision time for Depature: 11:32 Referrals: NO,LOCAL PHYSICIAN (PCP) Primary Care Physician Patient Instructions: Ankle Sprain (DC) Add. Discharge Instructions: You may use ibuprofen and Tylenol as needed for pain and discomfort. Ice at 20 minute intervals. Follow up with her doctor within 1 week for recheck. Return back to the emergency room for any concerns as needed. Work/School Note: Work Release Form Date Seen in the Emergency Department: Apr 19, 2018 Return to Work: Apr 21, 2018 Restrictions: No Restrictions MARIYA GERMAN Apr 19, 2018 11:06
--- NOTE | 2018-04-19 11:20 | Diagnostic Imaging Report ---
INDICATION: Puncture wound TECHNIQUE: Three views of the left ankle CORRELATION STUDY: None FINDINGS: The bony alignment is anatomic. The talar dome is intact. The ankle mortise is maintained. There is no acute fracture or dislocation. Suggestion slight soft tissue swelling at the distal leg. No radiographic evidence for soft tissue foreign body. IMPRESSION: Negative for acute bony abnormality of the ankle. Dictated by: Dictated on workstation # [id number]
[2018-04-19 11:38] VITALS: BP 128/98
--- OUTSIDE RECORDS SUMMARY | 2018-04-20 10:58 | XMS REPORT | Continuity of Care Document ---
Author Author On License Of [facility] Ctr of [facility] Address Unknown Phone Unavailable Allergies Active Description Code Type Severity Reaction Onset Reported/Identified Relationship to Patient Clinical Status Yes No Known Drug Allergies [id number] Drug Allergy Unknown N/A 12/21/2010 Medications There [...] HYPERFUNCTION 02/17/2014 BIBIANA DE LA GARZA APRN A 272.4 OTHER AND UNSPECIFIED HYPERLIPIDEMIA 04/06/2014 BIBIANA [...] S Ot R10.2 PELVIC AND PERINEAL PAIN 10/16/2017 Ot R19.03 RIGHT LOWER QUADRANT ABDOMINAL SWELLING, 10/16/2017 FENECH DO, LESLIE S Ot N94.0 MITTELSCHMERZ 10/16/2017 FENECH DO, LESLIE S Ot R10.2 PELVIC AND PERINEAL PAIN 10/16/2017 VIET DAVIS MD Ot R10.31 RIGHT LOWER QUADRANT PAIN 10/16/2017 VIET DAVIS MD Ot Z90.89 ACQUIRED ABSENCE OF OTHER ORGANS 10/16/2017 Ot R19.03 RIGHT LOWER QUADRANT ABDOMINAL SWELLING, 10/16/2017 FENECH DO, LESLIE S Ot N94.0 MITTELSCHMERZ 10/16/2017 FENECH DO, LESLIE S Ot R10.2 PELVIC AND PERINEAL PAIN 12/22/2017 FENECH DO, LESLIE S Ot N94.0 MITTELSCHMERZ 12/22/2017 FENECH DO, LESLIE S Ot R10.2 PELVIC AND PERINEAL PAIN 12/22/2017 FENECH DO, LESLIE S Ot N94.0 MITTELSCHMERZ 12/22/2017 FENECH DO, LESLIE S Ot R10.2 PELVIC AND PERINEAL PAIN 12/22/2017 FENECH DO, LESLIE S Ot N91.2 AMENORRHEA, UNSPECIFIED 12/23/2017 FENECH DO, LESLIE S Ot N94.0 MITTELSCHMERZ 12/23/2017 FENECH DO, LESLIE S Ot R10.2 PELVIC AND PERINEAL PAIN 12/26/2017 FENECH DO, LESLIE S Ot N94.0 MITTELSCHMERZ 12/26/2017 FENECH DO, LESLIE S Ot R10.2 PELVIC AND PERINEAL PAIN 12/26/2017 Ot R19.03 RIGHT LOWER QUADRANT ABDOMINAL SWELLING, 12/26/2017 FENECH DO, LESLIE S Ot N94.0 MITTELSCHMERZ 12/26/2017 FENECH DO, LESLIE S Ot R10.2 PELVIC AND PERINEAL PAIN 12/26/2017 FENECH DO, LESLIE S Ot N91.2 AMENORRHEA, UNSPECIFIED 12/31/2017 FENECH DO, LESLIE S Ot N91.2 AMENORRHEA, UNSPECIFIED 01/07/2018 FENECH DO, LESLIE S Ot N94.0 MITTELSCHMERZ 01/07/2018 FENECH DO, LESLIE S Ot R10.2 PELVIC AND PERINEAL PAIN Procedures Code Description [place] [address] ROUTINE VENIPUNCTURE 01/17/2014 34291 TEST, URINE (IN- HOUSE) 01/17/2014 23541 TESTOSTERONE TOTAL-WOMEN & CHILDREN 01/17/2014 60176 CBC 01/17/2014 [id number] GFR CALC (RESULT ONLY) 01/17/2014 22651 CMP 01/17/2014 70196 LIPID PANEL 01/17/2014 04599 TSH 01/17/2014 34293 INSULIN LEVEL 01/18/2014 Results Test Result Range [...] protein measurement (mass/volume) 0.27 mg /dL 0.00-0.50 Serum or plasma choriogonadotropin measurement (units/volume) - 12/19/17 08:45 Serum or plasma choriogonadotropin measurement (units/volume) < m[iU ]/mL <5 Encounters ACCT No. Visit Date/Time Discharge Status Pt. Type Provider Facility Loc./Unit Complaint [id number] 04/06/2014 15:52:00 04/06/2014 23:59:59 [facility] Outpatient BIBIANA DE LA GARZA APRN [id number] 02/17/2014 13:53:00 02/17/2014 23:59:59 [facility] Outpatient LIYA OSBORN APRN [id number] 01/17/2014 08:43:00 01/17/2014 23:59:59 [facility] Outpatient BIBIANA DE LA GARZA APRN [id number] 12/19/2017 07:43:00 12/19/2017 23:59:59 [facility] Outpatient LESLIE SAWYER DO Via [facility] LAB N91.2 AMENORRHEA [id number] 10/16/2017 08:12:00 10/16/2017 10:48:00 DIS Emergency VIET DAVIS MD Via [facility] ER R SIDE PAIN [id number] 07/14/2017 14:04:00 07/14/2017 23:59:59 [facility] Outpatient LESLIE SAWYER DO Via [facility] RAD CHRONIC PELVIC PAIN IN FEMALE,OVULATION PAIN [id number] 01/04/2016 09:47:00 Document Registration [id number] 12/21/2010 12:20:00 Document Registration
== END 2018-04-19 11:38 | disposition home or self-care (01) ==
LOC: EDUNIT# 10:27 → ER 10:29
DX: S90.02XA Contusion of left ankle, initial encounter (principal); Z90.89 Acquired absence of other organs; W18.39XA Other fall on same level, initial encounter; Y92.000 Kitchen of unspecified non-institutional (private) residence as the place of occurrence of the external cause
CPT/HCPCS: 73610

== ENCOUNTER → 2020-10-23 | Outpatient (CLI) | payer BC, OTHER ==
[2020-10-23 09:24] LABS: BILIRUBIN,URINE NEGATIVE (NEGATIVE); CLARITY,URINE SL CLOUDY; COLOR,URINE YELLOW; GLUCOSE, URINE (UA) NEGATIVE (NEGATIVE); KETONES,URINE NEGATIVE (NEGATIVE); LEUKOCYTE ESTERASE ,URINE NEGATIVE (NEGATIVE); NITRITE,URINE NEGATIVE (NEGATIVE); PH,URINE 6.5 (5-9); PROTEIN,URINE NEGATIVE (NEGATIVE)
[2020-10-23 09:33] LABS: BACTERIA,URINE MODERATE /HPF; RBC,URINE RARE /HPF
[2020-10-23 09:34] LABS: SQUAMOUS EPITHELIAL CELL,UR 25-50 /HPF
== END ==
LOC: LAB 09:11
PROVIDERS: ATTEND Obstetrics & Gynecology
DX: R31.9 Hematuria, unspecified (principal)
CPT/HCPCS: 81000; 87088

== ENCOUNTER → 2020-10-27 | Outpatient (CLI) | payer BC, OTHER ==
--- NOTE | 2020-10-27 16:38 | Diagnostic Imaging Report ---
INDICATION: anatomy scan. TECHNIQUE: Multiple real-time grayscale images were obtained over the gravid uterus. COMPARISON: None. FINDINGS: There is a single live intrauterine in the transverse position. The placenta is posterior in location, and there is no evidence of previa or placental abruption. The heart rate is 149 beats per minute. The amount of amniotic fluid appears visually appropriate. Cervix measures 4.1 cm in length. anatomy survey was performed and the following structures are visualized and normal: Stomach, four-chamber heart, umbilical cord insertion, urinary bladder, spine, three-vessel cord, intracranial contents, kidneys and all four extremities. Due to advanced gestational age, the maternal adnexa are suboptimally evaluated. Biometrical measurements are as follows: Biparietal 4.50 cm, age 19 weeks 5 days. Head circumference 17.09 cm, age 19 weeks 5 days. Abdominal circumference 14.82 cm, age 20 weeks 1 days. Femur length 3.09 cm, age 19 weeks 5 days. Sonographic estimate age: 19 weeks 6 days. Sonographic estimated date of delivery: 03/17/21. Estimated Weight: 315 gm (+/- 46 gm). LMP percentile: 44%. heart rate: 149 beats per minute. number: 1 of 1. IMPRESSION: 1. Single live intrauterine with normal anatomy survey. Dictated by: Dictated on workstation # [id number]
== END ==
LOC: RAD 13:06
PROVIDERS: ATTEND Nurse Practitioner Women's Health
DX: Z34.90 Encounter for supervision of normal pregnancy, unspecified, unspecified trimester (principal); Z3A.00 Weeks of gestation of pregnancy not specified
CPT/HCPCS: 76805

== ENCOUNTER 2020-12-29 14:01 | Outpatient (RCR) | payer BC, OTHER ==
[2021-03-02] MEDS ORDERED: DCS100C PO (07:00)
[2021-03-02] MEDS ORDERED: BENZ78AE5 TP (07:00)
[2021-03-02] MEDS ORDERED: IBUP-844 PO (07:00)
[2021-03-02] MEDS ORDERED: LABE200T7 PO (07:00)
== END 2021-03-29 | disposition home or self-care (01) ==
LOC: LAB 14:01
PROVIDERS: ATTEND Obstetrics & Gynecology
DX: O99.810 Abnormal glucose complicating pregnancy (principal)
CPT/HCPCS: 36415; 82951; 82952; 82962

== ENCOUNTER → 2021-02-27 | Outpatient (CLI) | payer BC, OTHER | LOC: LABNPT 10:49 | PROVIDERS: ATTEND Obstetrics & Gynecology | DX: O13.9 Gestational [pregnancy-induced] hypertension without significant proteinuria, unspecified trimester (principal); Z3A.00 Weeks of gestation of pregnancy not specified | CPT/HCPCS: 82570; 84156 ==

== ENCOUNTER 2021-02-28 18:45 | Inpatient (IN) | payer BC, OTHER ==
[~2021-02-28] VITALS: Ht 162 cm; Wt 113.2 kg
[2021-02-28 20:06] LABS: BASOPHILS % (AUTO) 0 % (0-10); EOSINOPHILS % (AUTO) 0 % (0-10); HEMATOCRIT 42 % (35-52); HEMOGLOBIN 14.6 g/dL (11.5-16.0); LYMPHOCYTES # (AUTO) 1.9 10^3/uL (1.0-4.0); LYMPHOCYTES % (AUTO) 24 % (12-44); MEAN CORPUSCULAR HEMOGLOBIN 31 pg (25-34); MEAN CORPUSCULAR HGB CONC 35 g/dL (32-36); MEAN CORPUSCULAR VOLUME 88 fL (80-99); MEAN PLATELET VOLUME 11.3 fL (9.0-12.2); MONOCYTES # (AUTO) 0.7 10^3/uL (0.0-1.0); MONOCYTES % (AUTO) 9 % (0-12); NEUTROPHILS % (AUTO) 65 % (42-75); PLATELET COUNT 194 10^3/uL (130-400); WHITE BLOOD COUNT 7.6 10^3/uL (4.3-11.0)
[2021-02-28 20:15] LABS: ALBUMIN 3.4 GM/DL (3.2-4.5); CHLORIDE 106 MMOL/L (98-107); POTASSIUM 3.7 MMOL/L (3.6-5.0); SODIUM 137 MMOL/L (135-145)
[2021-02-28] MEDS ORDERED: NS IV 500 ML 500 ML IV ONE (20:15)
[2021-02-28 20:16] LABS: CALCIUM 8.8 MG/DL (8.5-10.1)
[2021-02-28 20:17] LABS: GLUCOSE 82 MG/DL (70-105)
[2021-02-28 20:19] LABS: BILIRUBIN,TOTAL 0.3 MG/DL (0.1-1.0); CARBON DIOXIDE 18 MMOL/L (21-32)
[2021-02-28 20:21] LABS: ALKALINE PHOSPHATASE 91 U/L (40-136); CREATININE SERUM 0.71 MG/DL (0.60-1.30); GFR ESTIMATED > 60
[2021-02-28 20:22] LABS: BUN/CREATININE RATIO 8
[2021-02-28 20:24] LABS: ALANINE AMINOTRANSFERASE 12 U/L (0-55); URIC ACID 5.3 MG/DL (2.6-7.2)
[2021-02-28 20:34] LABS: TOTAL PROTEIN 6.5 GM/DL (6.4-8.2)
[2021-02-28 20:35] VITALS: BP 156/89
[2021-02-28] MEDS: D5 LR IV SOLUTION 1,000 ML IV SCH (20:44)
[2021-02-28 21:05] VITALS: BP 176/90
[2021-02-28] MEDS ORDERED: LABETALOL HCL 20 MG/4 ML VIAL ONE (21:11)
[2021-02-28] MEDS ORDERED: LABETALOL 200 MG (NORMODYNE) TAB PO ONE ×2 (21:14→21:30)
[2021-02-28 21:15] VITALS: BP 168/72
[2021-02-28] MEDS ORDERED: LABETALOL HCL 20 MG/4 ML VIAL IV ONE (21:30)
[2021-02-28 22:15] VITALS: BP 125/71
[2021-02-28 23:30] VITALS: BP 137/70
[2021-02-28 23:40] VITALS: BP 129/59
[2021-03-01] VITALS (50 sets, daily range): BP systolic 98–175; BP diastolic 57–90
[2021-03-01] MEDS ORDERED: HYDROmorphone 2 MG/ML VIAL (DILAUDID) ONE (02:33)
[2021-03-01] MEDS ORDERED: HYDROmorphone 2 MG/ML VIAL (DILAUDID) IV ONE (02:45)
[2021-03-01] MEDS: D5 LR IV SOLUTION 1,000 ML IV SCH ×2 (02:55→10:03)
[2021-03-01] MEDS ORDERED: LACTATED RINGERS 1,000 ML IV ONE (07:20)
[2021-03-01] MEDS ORDERED: OXYTOCIN PRE-MIX DRIP 500 ML IV ONE (07:20)
[2021-03-01] MEDS ORDERED: fentaNYL 2 mcg/ml BUPIVA 0.125 100 ML ONE (07:20)
[2021-03-01] MEDS: OXYTOCIN PRE-MIX DRIP 500 ML IV SCH ×2 (07:32→15:07)
--- NOTE | 2021-03-01 08:27 | History & Physical-OB ---
OB - Chief Complaint & HPI Date/Time Date of Admission: Date of Admission: February 28, 2021 at 18:45 Date seen by a Provider: March 01, 2021 Time Seen by a Provider: 07:15 Chief Complaint/History OB-Reason for Admission/Chief: Induction of Labor Hx : 1 Hx Para: 0 Expected Date of Delivery: Mar 17, 2021 Gestational Age in Weeks: 37 Gestational Age in Days: 5 Indication for induction: medical complication (GHTN) Admission Nurse Assessment Rev: Yes History of Labs A pos Antibody neg RI RPR NR HBsAg NR HIV NR GC neg GBS neg Allergies and Home Medications Allergies Coded Allergies: No Known Drug Allergies (Unverified , 12/21/10) Home Medications Promethazine HCl 25 Mg Tablet, 25 MG PO Q8H PRN for NAUSEA/VOMITING Prescribed by: VIET DAVIS on 10/16/17 1028 Patient Home Medication List Home Medication List Reviewed: Yes OB - History Hx of Present Care: Yes Ultrasounds: Normal mid trimester US Obstetrical Complications: Gestational Hypertension Medical Complications: None Patient Past Medical History n/a Immunizations Hepatitis A: Yes Hepatitis B: Yes OB - Admission Exam Physical Exam Vitals: Vital Signs 02/28/21 03/01/21 03/01/21 20:35 04:45 08:00 Temp 36.5 Pulse 81 Resp 18 B/P (MAP) 155/81 (105) Pulse Ox 97 O2 Delivery Room Air HEENT: NCAT Heart: Rhythm Normal Lungs: Clear Abdomen: Gravid Extremities: Normal Reflexes: Normal Cervical Dilatation: 1cm Effacement: 75% Station: -1 Membranes: Intact Heart Rate: 130's Accelerations: Accelerations Present Decelerations: No Decelerations Short Term Variability: Present Customer Engagement Specialist Variability: Average (6-25) Contractions on Admission: 6-10 Minutes Apart Intensity: Mild Labs Laboratory Tests Test 02/28/21 19:50 02/28/21 19:55 Range/Units White Blood Count 7.6 4.3-11.0 10^3/uL Red Blood Count 4.79 3.80-5.11 10^6/uL Hemoglobin 14.6 11.5-16.0 g/dL Hematocrit 42 35-52 % Mean Corpuscular Volume 88 80-99 fL Mean Corpuscular Hemoglobin 31 25-34 pg Mean Corpuscular Hemoglobin Concent 35 32-36 g/dL Red Cell Distribution Width 12.4 10.0-14.5 % Platelet Count 194 130-400 10^3/uL Mean Platelet Volume 11.3 9.0-12.2 fL Immature Granulocyte % (Auto) 0 % Neutrophils (%) (Auto) 65 42-75 % Lymphocytes (%) (Auto) 24 12-44 % Monocytes (%) (Auto) 9 0-12 % Eosinophils (%) (Auto) 0 0-10 % Basophils (%) (Auto) 0 0-10 % Neutrophils # (Auto) 5.0 1.8-7.8 10^3/uL Lymphocytes # (Auto) 1.9 1.0-4.0 10^3/uL Monocytes # (Auto) 0.7 0.0-1.0 10^3/uL Eosinophils # (Auto) 0.0 0.0-0.3 10^3/uL Basophils # (Auto) 0.0 0.0-0.1 10^3/uL Immature Granulocyte # (Auto) 0.0 0.0-0.1 10^3/uL Urine Protein 19 H 6-12 MG/DL Urine Random Creatinine 181 H 30-125 MG/DL Urine Creatinine 181 H 30-125 MG/DL Urine Protein/Creatinine Ratio 0.11 Sodium Level 137 135-145 MMOL/L Potassium Level 3.7 3.6-5.0 MMOL/L Chloride Level 106 98-107 MMOL/L Carbon Dioxide Level 18 L 21-32 MMOL/L Anion Gap 13 5-14 MMOL/L Blood Urea Nitrogen 6 L 7-18 MG/DL Creatinine 0.71 0.60-1.30 MG/DL Estimat Glomerular Filtration Rate > 60 BUN/Creatinine Ratio 8 Glucose Level 82 70-105 MG/DL Uric Acid 5.3 2.6-7.2 MG/DL Calcium Level 8.8 8.5-10.1 MG/DL Corrected Calcium 9.3 8.5-10.1 MG/DL Total Bilirubin 0.3 0.1-1.0 MG/DL Aspartate Amino Transf (AST/SGOT) 16 5-34 U/L Alanine Aminotransferase (ALT/SGPT) 12 0-55 U/L Alkaline Phosphatase 91 40-136 U/L Lactate Dehydrogenase 205 125-220 U/L Total Protein 6.5 6.4-8.2 GM/DL Albumin 3.4 3.2-4.5 GM/DL OB - Assessment/Plan/Diagnosis Assessment Assessment: induction of labor Admission Dx 31 yo @ 37.6 GHTN- poor controlled GBS neg Admission Status: Inpatient Order (span 2 midnights) Reason for Inpatient Admission: Induction of labor at term Plan Plan: Induction Induction Method: per Misoprostol Protocol LESLIE SAWYER DO March 01, 2021 08:27
[2021-03-01] MEDS ORDERED: BUPIVACAINE 0.25% 30 ML (SENSORCAINE) VIAL ONE (08:53)
[2021-03-01] MEDS ORDERED: fentaNYL INJ 100 MCG/2 ML AMP ONE (08:54)
[2021-03-01] MEDS ORDERED: NALOXONE 0.4 MG/ML 1 ML (NARCAN) VIAL IV PRN (09:45)
[2021-03-01] MEDS ORDERED: ONDANSETRON 4 MG/2 ML (SDV) Z0FRAN IV PRN (09:45)
[2021-03-01] MEDS ORDERED: diphenhydrAMINE 50 MG/ML INJ (BENADRYL) IV PRN (09:45)
[2021-03-01] MEDS ORDERED: EPIDURAL (fentaNYL 2 MCG/ML BUPIVA 0.125%)100 ML BAG EPI PRN (09:45)
[2021-03-01] MEDS ORDERED: LACTATED RINGERS 1,000 ML IV SCH (09:45)
[2021-03-01] MEDS ORDERED: LIDOCAINE/EPI 2% 1:200,00 (XYLOCAINE) 20 ML VIAL ONE (14:08)
[2021-03-01] MEDS ORDERED: OXYTOCIN PRE-MIX DRIP 500 ML IV SCH (15:15)
[2021-03-01] MEDS ORDERED: TETANUS,DIPTH,PERTUSS P/F (BOOSTRIX) 0.5 ML VIAL IM ONE (15:15)
[2021-03-01] MEDS ORDERED: BENZOCAINE/MENTHOL (DERMOPLAST) 56 ML CAN TP PRN (15:15)
[2021-03-01] MEDS ORDERED: WITCH HAZEL(TUCKS) 40 EA JAR TOP PRN (15:15)
[2021-03-01] MEDS ORDERED: MEASLES,MUMPS,RUBELLA 1 EA INJ SQ ONE (15:15)
--- NOTE | 2021-03-01 15:42 | OB Labor & Delivery Record ---
L&D History Date of Service Date of Service: March 01, 2021 History Expected Date of Delivery: Mar 17, 2021 Gestational Age in Weeks: 37 Hx : 1 Hx Para: 0 Complications Events: Induced HTN, Routine care Operative Indications (Cesarea: N/A-Vaginal Delivery Intrapartal Events: None L&D Stage1 Stage One Onset of Labor - Date: March 01, 2021 Monitors and Tracing Monitor Mode: Internal Heart Rate: 130 Monitor Accelerations: Uniform Monitor Decelerations: Late Station: -2 Briquetter Operator Variability: Average (6-10) Short Term Variability: Present Presentation: Vertex Vital Signs VS - Last 72 Hours, by Label 02/28/21 02/28/21 02/28/21 02/28/21 20:35 21:05 21:15 22:15 Temp 36.9 Pulse 89 70 71 79 Resp 18 18 18 18 B/P (MAP) 176/90 (118) 168/72 (104) 125/71 (89) Pulse Ox 97 O2 Delivery Room Air 02/28/21 02/28/21 03/01/21 03/01/21 23:30 23:40 00:45 01:45 Temp 36.6 Pulse 71 76 79 78 Resp 18 18 18 18 B/P (MAP) 137/70 (92) 129/59 (82) 142/61 (88) 143/72 (95) 03/01/21 03/01/21 03/01/21 03/01/21 02:45 03:45 04:45 05:45 Temp 36.5 Pulse 67 59 76 83 Resp 18 18 18 18 B/P (MAP) 139/80 (99) 125/59 (81) 121/71 (88) 124/70 (88) 03/01/21 03/01/21 03/01/21 03/01/21 06:30 07:32 07:45 08:00 Pulse 75 75 77 81 Resp 18 18 18 18 B/P (MAP) 121/59 (79) 159/82 (107) 148/83 (104) 155/81 (105) 03/01/21 03/01/21 03/01/21 03/01/21 08:15 08:30 08:45 09:00 Temp 37.3 Pulse 74 68 68 71 Resp 18 18 18 18 B/P (MAP) 149/80 (103) 152/84 (106) 175/89 (117) 161/85 (110) 03/01/21 03/01/21 03/01/21 03/01/21 09:15 09:20 09:25 09:30 Pulse 80 82 80 87 Resp 18 18 18 18 B/P (MAP) 151/70 (97) 156/70 (98) 144/71 (95) 127/65 (85) Pulse Ox 99 99 98 O2 Delivery Room Air Room Air Room Air 03/01/21 03/01/21 03/01/21 03/01/21 09:35 09:40 09:45 09:50 Temp 36.6 Pulse 85 73 75 81 Resp 18 18 16 16 B/P (MAP) 137/81 (99) 98/57 (71) 123/63 (83) 116/57 (76) Pulse Ox 98 98 96 98 O2 Delivery Room Air Room Air Room Air Room Air 03/01/21 03/01/21 03/01/21 03/01/21 09:55 10:05 10:10 10:15 Pulse 81 80 69 77 Resp 16 16 16 16 B/P (MAP) 120/58 (78) 110/59 (76) 122/64 (83) 122/59 (80) Pulse Ox 99 98 97 95 O2 Delivery Room Air Room Air Room Air Room Air 03/01/21 03/01/21 03/01/21 03/01/21 10:30 10:45 11:00 11:15 Pulse 78 88 83 75 Resp 16 16 16 18 B/P (MAP) 124/78 (93) 129/64 (85) 126/71 (89) 152/85 (107) Pulse Ox 97 98 97 98 O2 Delivery Room Air Room Air Room Air Room Air Rupture of Membranes Spontaneous Ruture of Membrane: No Amniotic Membrane Rupture Time: 07:15 Amniotic Membrane Fluid Desc.: Clear Vaginal Bleeding Description: Normal Show Induction/Anesthesia Epidural Cath Placement - Time: 922 Progress/Notes Patient admitted last night for induction of labor due to GHTN. Cytotec used overnight, AROM and pitocin augmentation this AM, she received an epidural and progressed to complete and + 2 station. L&D Stage2 Stage Two Stage II Date: March 01, 2021 Monitors and Tracing Monitor Mode: Internal Heart Rate: 130 Monitor Accelerations: Uniform Monitor Decelerations: Variable Briquetter Operator Variability: Average (6-10) Short Term Variability: Present Position: Right Occiput Anterior Presentation: Vertex Cord Descript/Complications Cord Vessel Description: 3 Vessels Delivery Type Infant Delivery Method: Spontaneous Vaginal Anterior Shoulder: Left Episiotomy/Perineal Laceration Laceraction(s)/Extensions: Yes Episiotomy Description: Right Mediolateral Degree (describe repair) RML repaired using 3-0 rapide in usual fashion. Condition of Delivery 1 minute Comment: 8 5 minute Comment: 9 Notes Live female infant weight 6lbs 4 oz, APGARs of 8/9 Condition of Condition of Infant: Living Exam: No Observed Abnormalities Resuscitation Resuscitation: N/A - Spontaneous Resp L&D Stage3 Stage Three Stage III Date: March 01, 2021 Pictocin Pitocin Administration mu/min: 6 Pitocin ml/hr: 6 Pitocin Administration Comment: 30 mu wide open at delivery of placenta Placenta Delivery Placenta Delivery: Spontaneous Delivery Summary Summary Estimated blood loss (mL): 350 Attending at delivery: Leslie Sawyer DO Condition of Delivery Examined: Cervix Examined, Uterus Explored Post Hemorrhage: No Condition of Mother stable Condition of (s) stable LESLIE SAWYER DO March 01, 2021 3:42 pm
[2021-03-01] MEDS: IBUPROFEN 600 MG (MOTRIN) TAB PO SCH (20:13)
[2021-03-01] MEDS: DOCUSATE SODIUM 100 MG (COLACE) CAP PO SCH (20:13)
[2021-03-01] MEDS ORDERED: CATHETER FLUSH 10 ML SYR IV SCH (22:00)
[2021-03-02 00:45] VITALS: BP 127/70
[2021-03-02] MEDS: IBUPROFEN 600 MG (MOTRIN) TAB PO SCH ×3 (02:15→14:49)
[2021-03-02 05:00] VITALS: BP 142/77
[2021-03-02 06:53] LABS: BASOPHILS % (AUTO) 0 % (0-10); EOSINOPHILS % (AUTO) 0 % (0-10); HEMATOCRIT 34 % (35-52); HEMOGLOBIN 11.2 g/dL (11.5-16.0); LYMPHOCYTES # (AUTO) 2.1 10^3/uL (1.0-4.0); LYMPHOCYTES % (AUTO) 25 % (12-44); MEAN CORPUSCULAR HEMOGLOBIN 30 pg (25-34); MEAN CORPUSCULAR HGB CONC 33 g/dL (32-36); MEAN CORPUSCULAR VOLUME 91 fL (80-99); MEAN PLATELET VOLUME 10.9 fL (9.0-12.2); MONOCYTES # (AUTO) 0.9 10^3/uL (0.0-1.0); MONOCYTES % (AUTO) 11 % (0-12); NEUTROPHILS # (AUTO) 5.5 10^3/uL (1.8-7.8); NEUTROPHILS % (AUTO) 64 % (42-75); PLATELET COUNT 137 10^3/uL (130-400); WHITE BLOOD COUNT 8.6 10^3/uL (4.3-11.0)
--- NOTE | 2021-03-02 06:56 | Postpartum Progress Note ---
Note Note Day # 1 Subjective: Patient is without complaints. Ambulating, voiding. Tolerating a regular diet without nausea or vomiting. Normal lochia. Pain is well controlled with oral pain medications. Objective: Physical Exam: General - Alert and oriented, no apparent distress Abdomen - Soft, appropriately tender to palpation, non-distended, fundus firm at umbilicus Extremities - no edema, negative Mahnaz's bilaterally Assessment: PPD 1 NVD GHTN- labile since Acute blood loss anemia Plan: Routine care. Encourage breast feeding. Encourage ambulation. Ferrous sulfate supplementation. Plan for discharge today or tomorrow pending bp control Laboratory Tests Test 03/02/21 06:49 Range/Units White Blood Count 8.6 4.3-11.0 10^3/uL Red Blood Count 3.72 L 3.80-5.11 10^6/uL Hemoglobin 11.2 #L 11.5-16.0 g/dL Hematocrit 34 L 35-52 % Mean Corpuscular Volume 91 80-99 fL Mean Corpuscular Hemoglobin 30 25-34 pg Mean Corpuscular Hemoglobin Concent 33 32-36 g/dL Red Cell Distribution Width 12.7 10.0-14.5 % Platelet Count 137 130-400 10^3/uL Mean Platelet Volume 10.9 9.0-12.2 fL Immature Granulocyte % (Auto) 0 % Neutrophils (%) (Auto) 64 42-75 % Lymphocytes (%) (Auto) 25 12-44 % Monocytes (%) (Auto) 11 0-12 % Eosinophils (%) (Auto) 0 0-10 % Basophils (%) (Auto) 0 0-10 % Neutrophils # (Auto) 5.5 1.8-7.8 10^3/uL Lymphocytes # (Auto) 2.1 1.0-4.0 10^3/uL Monocytes # (Auto) 0.9 0.0-1.0 10^3/uL Eosinophils # (Auto) 0.0 0.0-0.3 10^3/uL Basophils # (Auto) 0.0 0.0-0.1 10^3/uL Immature Granulocyte # (Auto) 0.0 0.0-0.1 10^3/uL Vitals - Labs Vital Signs - I&O Vital Signs Date Time Temp Pulse Resp B/P (MAP) Pulse Ox O2 Delivery O2 Flow Rate FiO2 5/28/21 05:00 36.0 77 18 142/77 (98) 98 Room Air 03/02/21 00:45 36.6 86 18 127/70 (89) 98 Room Air 03/01/21 20:13 36.8 93 18 145/71 (95) 97 Room Air 03/01/21 17:46 37.1 112 18 123/62 (82) Room Air 03/01/21 15:45 37.1 93 18 148/68 (94) Room Air 03/01/21 15:30 98 18 137/65 (89) Room Air 03/01/21 15:15 37.4 99 18 134/64 (87) Room Air 03/01/21 15:00 37.4 91 18 133/61 (85) Room Air 03/01/21 14:45 37.5 104 18 134/62 (86) Room Air 03/01/21 14:30 37.6 105 18 149/70 (96) Room Air 03/01/21 14:15 37.6 166 18 145/74 (97) Room Air 03/01/21 14:00 100 18 162/85 (110) Room Air 03/01/21 13:45 107 18 159/90 (113) Room Air 03/01/21 13:30 37.6 90 18 138/64 (88) Room Air 03/01/21 13:15 88 18 135/65 (88) Room Air 03/01/21 13:00 84 18 142/73 (96) Room Air 03/01/21 12:45 81 18 127/70 (89) Room Air 03/01/21 12:30 83 18 137/68 (91) Room Air 03/01/21 12:15 83 18 133/76 (95) Room Air 03/01/21 12:00 72 18 135/66 (89) Room Air 03/01/21 11:45 83 18 114/58 (76) Room Air 03/01/21 11:30 36.9 74 18 118/75 (89) Room Air 03/01/21 11:15 75 18 152/85 (107) 98 Room Air 03/01/21 11:00 83 16 126/71 (89) 97 Room Air 03/01/21 10:45 88 16 129/64 (85) 98 Room Air 03/01/21 10:30 78 16 124/78 (93) 97 Room Air 03/01/21 10:15 77 16 122/59 (80) 95 Room Air 03/01/21 10:10 69 16 122/64 (83) 97 Room Air 03/01/21 10:05 80 16 110/59 (76) 98 Room Air 03/01/21 09:55 81 16 120/58 (78) 99 Room Air 03/01/21 09:50 81 16 116/57 (76) 98 Room Air 03/01/21 09:45 75 16 123/63 (83) 96 Room Air 03/01/21 09:40 36.6 73 18 98/57 (71) 98 Room Air 03/01/21 09:35 85 18 137/81 (99) 98 Room Air 03/01/21 09:30 87 18 127/65 (85) 98 Room Air 03/01/21 09:25 80 18 144/71 (95) 99 Room Air 03/01/21 09:20 82 18 156/70 (98) 99 Room Air 03/01/21 09:15 80 18 151/70 (97) 03/01/21 09:00 71 18 161/85 (110) 03/01/21 08:45 68 18 175/89 (117) 03/01/21 08:30 68 18 152/84 (106) 03/01/21 08:15 37.3 74 18 149/80 (103) 03/01/21 08:00 81 18 155/81 (105) 03/01/21 07:45 77 18 148/83 (104) 03/01/21 07:32 75 18 159/82 (107) I & O 03/02/21 07:00 Intake Total 2600 ml Balance 2600 ml Labs Laboratory Tests 03/02/21 06:49: LESLIE SAWYER DO March 02, 2021 06:56
--- NOTE | 2021-03-02 06:58 | Discharge Inst-Women's Service ---
Discharge Inst-Women's Serv Depart Medication/Instructions New, Converted or Re-Newed RX: RX on Chart Problems Reviewed?: Yes Consults/Follow Up Additional Follow Up: Yes Activity Activity: Activity as Tolerated Driving Instructions: No Driving for 1 Week NO SMOKING: NO SMOKING Nothing Inside Vagina: No Douching, No [place], No Tampons Diet Discharge Diet: No Restrictions Symptoms to Report to : Bleeding Excessive, Pain Increased, Fever Over 101 Degrees F, Pain/Pressure in Chest, Vaginal Bleeding Increase, Questions/Concerns For Any Problems or Questions: Contact Your Physician LESLIE SAWYER DO March 02, 2021 06:57
[2021-03-02] MEDS ORDERED: BENZ78AE5 TP (07:00)
[2021-03-02] MEDS ORDERED: IBUP-844 PO (07:00)
[2021-03-02] MEDS ORDERED: LABE200T7 PO (07:00)
[2021-03-02] MEDS ORDERED: DCS100C PO (07:00)
[2021-03-02 08:45] VITALS: BP 149/79
[2021-03-02] MEDS ORDERED: LABETALOL 200 MG (NORMODYNE) TAB PO SCH (09:00)
[2021-03-02] MEDS: DOCUSATE SODIUM 100 MG (COLACE) CAP PO SCH (09:04)
--- NOTE | 2021-03-02 14:23 | Anesthesia-Regional Post-Op ---
Regional Patient Condition Mental Status: Alert, Oriented x3 Circulation: Same as Pre-Op Headache: Absent Sensation: Full Recovery Motor Block: Absent Post Op Complications Complications None Follow Up Care/Instructions Patient Instructions None needed. Anesthesia/Patient Condition Patient is doing well, no complaints, stable vital signs, no apparent adverse anesthesia problems. No complications reported per nursing. OWEN PIERCE CRNA March 02, 2021 14:23
[2021-03-02 14:50] VITALS: BP 132/73
== END 2021-03-02 17:20 | disposition home or self-care (01) | DRG 806 ==
LOC: LDRP 18:45
PROVIDERS: ADMIT Obstetrics & Gynecology; ATTEND Obstetrics & Gynecology
PROC: 10E0XZZ Delivery of Products of Conception, External Approach (ICD-10-PCS; principal; 2021-03-01)
PROC: 10907ZC Drainage of Amniotic Fluid, Therapeutic from Products of Conception, Via Natural or Artificial Opening (ICD-10-PCS; 2021-03-01)
PROC: 0W8NXZZ Division of Female Perineum, External Approach (ICD-10-PCS; 2021-03-01)
DX: O13.4 Gestational [pregnancy-induced] hypertension without significant proteinuria, complicating childbirth (principal); D62 Acute posthemorrhagic anemia; Z37.0 Single live birth; Z3A.37 37 weeks gestation of pregnancy; O90.81 Anemia of the puerperium
CPT/HCPCS: 36415; 80053; 82570; 83615; 84156; 84550; 85025; 86850; 86900; 86901

== ENCOUNTER → 2022-02-04 | Outpatient (CLI) | payer BC ==
[~2022-02-04] MED LIST changes: +BENZ78AE5 TP; +DOCU-239 PO; +IBUP-844 PO; +LABE200T7 PO
== END ==
LOC: LAB 11:34
PROVIDERS: ATTEND Obstetrics & Gynecology
DX: N91.2 Amenorrhea, unspecified (principal)
CPT/HCPCS: 36415; 84702

== ENCOUNTER → 2022-04-22 | Outpatient (CLI) | payer BC ==
[2022-04-22 08:57] LABS: BASOPHILS # (AUTO) 0.1 10^3/uL (0.0-0.1); BASOPHILS % (AUTO) 1 % (0-10); EOSINOPHILS # (AUTO) 0.1 10^3/uL (0.0-0.3); EOSINOPHILS % (AUTO) 2 % (0-10); HEMATOCRIT 42 % (35-52); HEMOGLOBIN 14.2 g/dL (11.5-16.0); LYMPHOCYTES # (AUTO) 3.1 10^3/uL (1.0-4.0); LYMPHOCYTES % (AUTO) 38 % (12-44); MEAN CORPUSCULAR HEMOGLOBIN 29 pg (25-34); MEAN CORPUSCULAR HGB CONC 34 g/dL (32-36); MEAN CORPUSCULAR VOLUME 85 fL (80-99); MEAN PLATELET VOLUME 9.5 fL (9.0-12.2); MONOCYTES # (AUTO) 0.6 10^3/uL (0.0-1.0); MONOCYTES % (AUTO) 7 % (0-12); NEUTROPHILS # (AUTO) 4.2 10^3/uL (1.8-7.8); NEUTROPHILS % (AUTO) 52 % (42-75); PLATELET COUNT 245 10^3/uL (130-400)
[2022-04-22 09:18] LABS: ALBUMIN 4.1 GM/DL (3.2-4.5); BILIRUBIN,TOTAL 0.4 MG/DL (0.1-1.0); CALCIUM 8.9 MG/DL (8.5-10.1); CREATININE SERUM 0.83 MG/DL (0.60-1.30); POTASSIUM 3.9 MMOL/L (3.6-5.0); TOTAL PROTEIN 7.1 GM/DL (6.4-8.2)
[2022-04-22 09:38] LABS: FREE T4 (FREE THYROXINE) 0.84 NG/DL (0.70-1.48)
== END ==
LOC: LAB 08:14
PROVIDERS: ATTEND Family Medicine
DX: Z13.1 Encounter for screening for diabetes mellitus (principal); R53.83 Other fatigue
CPT/HCPCS: 36415; 80053; 80061; 83036; 84439; 84443; 85025

== ENCOUNTER → 2022-11-14 | Outpatient (CLI) | payer BC ==
[~2022-11-14] MED LIST changes: +LABE200T10 PO; -LABE200T7 PO
--- NOTE | 2022-11-14 13:05 | Diagnostic Imaging Report ---
INDICATION: Left breast pain. Sonographic interrogation of the area of pain in the left breast was performed. This corresponds to the 2-3 o'clock location. No sonographic abnormality is seen. No solid or cystic mass is detected. All 4 quadrants of the left breast including the retroareolar region were evaluated. IMPRESSION: BI-RADS Category 1 No sonographic abnormality is identified. ACR BI-RADS Category 1: Negative. Result letter will be mailed to the patient. Note: At least 10% of breast cancer is not imaged by mammography. Dictated by: Dictated on workstation # [id number]
== END ==
LOC: RAD 12:01
PROVIDERS: ATTEND Nurse Practitioner Women's Health
DX: N64.4 Mastodynia (principal)
CPT/HCPCS: 76641